=== PATIENT | male | born 1970 | race African-American/Black ===

== ENCOUNTER 2017-07-19 10:21 | Emergency (ER) | payer SELFPAY ==
[~2017-07-19] VITALS: Ht 180.3 cm; Wt 105.0 kg
[~2017-07-19 10:21] MED LIST: CARB200T16 PO; FLUC100T2 PO; RISP4TAB41 PO; SULF1TAB47 PO; VENTAER INH
[2017-07-19 10:23] VITALS: BP 123/75; PULSE 103; RESP 22; TEMP 97.6; O2SAT 95
[2017-07-19] MEDS ORDERED: ZOLO100T PO (10:40)
[2017-07-19] MEDS ORDERED: REME30TA PO (10:40)
[2017-07-19] MEDS ORDERED: TRILAFON (10:40)
[2017-07-19] MEDS ORDERED: ELVITAB PO (10:40)
[2017-07-19] MEDS ORDERED: DEXAMETHASONE SOD PHOS 4 MG/ML VIAL IM ONE (10:45)
[2017-07-19] MEDS ORDERED: BACT800T5 PO (10:56)
[2017-07-19] MEDS ORDERED: ZYRTEC PO (10:56)
[2017-07-19] MEDS ORDERED: PRED20 PO (10:56)
[2017-07-19] MEDS ORDERED: LOTR15T TOPICAL (10:56)
--- NOTE | 2017-07-19 10:56 | PD ---
HPI Chief Complaint: Complaint Time Seen by Provider: 10:37 Travel History International Travel<30 days: No Contact w/Intl Traveler<30days: No Traveled to known affect area: No History of Present Illness HPI 47-year-old male complains of pain and swelling and fluid weeping from the scrotum. Patient states that he has jock itch to the groin area for the past week. Patient applied " SUPER 8" hair product solution to the scrotum last night. Patient states that he started having increased pain swelling and fluid weeping from the scrotum this morning. Patient denies any problem with urinating. Patient denies any fever chills. PFSH Past Medical History Depression: Yes Cancer: No Cardiovascular Problems: Yes Chest Pain: Yes Cerebrovascular Accident: No Diminished Hearing: No Endocrine: No Genitourinary: No Headaches: No Hypertension: Yes Immune Disorder: Yes (HIV) Kidney Stones: No Musculoskeletal: No Neurologic: Yes Psychiatric: Yes (MOOD DISORDER/SCHIZOAFFECTIVE) Reproductive: No Respiratory: No Migraines: No Renal Failure: No Seizures: Yes PNEUMOCCOCAL Vaccine (Year): 2 Past Surgical History Abdominal Surgery: No Cardiac Surgery: No Ear Surgery: No Endocrine Surgery: No Eye Surgery: No Genitourinary Surgery: No Gynecologic Surgery: No Oral Surgery: No Thoracic Surgery: No Social History Alcohol Use: No Tobacco Use: No Substance Use: Yes (THC, COCAINE, BARBS, METH(NOT SINCE 07/17/11)) Allergies-Medications (Allergen,Severity, Reaction): Coded Allergies: ibuprofen (Unverified Allergy, Severe, Shortness of Breath, 07/19/17) penicillin G (Unverified Allergy, Severe, Shortness of Breath, 07/19/17) Reported Meds & Prescriptions Reported Meds & Active Scripts Active Ventolin Hfa (Albuterol Sulfate) 18 Gm Aero 2 Puff INH Q4HPRN Bactrim Ds (Trimethoprim/Sulfamethoxazole) Tab 1 Tab PO BID 14 Days Reported Tegretol (Carbamazepine) 200 Mg Tab 600 Mg PO BID Fluconazole 100 Mg Tab 100 Mg PO DAILY Risperdal (Risperidone) 4 Mg Tab 4 Mg PO HS Review of Systems General / Constitutional: No: Fever Eyes: No: Visual changes HENT: No: Headaches Cardiovascular: No: Chest Pain or Discomfort Respiratory: No: Shortness of Breath Gastrointestinal: No: Abdominal Pain Genitourinary: No: Dysuria Musculoskeletal: No: Pain Skin: No Rash Neurologic: No: Weakness Psychiatric: No: Depression Endocrine: No: Polydipsia Hematologic/Lymphatic: No: Easy Bruising Physical Exam Narrative GENERAL: Well-nourished, well-developed patient. SKIN: Focused skin assessment warm/dry. HEAD: Normocephalic. EYES: No scleral icterus. No injection or drainage. NECK: Supple, trachea midline. No JVD or lymphadenopathy. CARDIOVASCULAR: Regular rate and rhythm without murmurs, gallops, or rubs. RESPIRATORY: Breath sounds equal bilaterally. No accessory muscle use. GASTROINTESTINAL: Abdomen soft, non-tender, nondistended. MUSCULOSKELETAL: No cyanosis, or edema. BACK: Nontender without obvious deformity. No CVA tenderness. exam: Patient has edema swelling with mild tenderness of the scrotum. Mild fissuring of the skin. No serosanguineous discharge. Data Data Last Documented VS Vital Signs Date Time Temp Pulse Resp B/P (MAP) Pulse Ox O2 Delivery O2 Flow Rate FiO2 07/19/17 10:23 97.6 103 22 123/75 (91) 95 Orders Orders Dexamethasone Inj (Decadron Inj) (07/19/17 10:45) MDM Medical Decision Making Medical Screen Exam Complete: Yes Emergency Medical Condition: Yes Differential Diagnosis Differential diagnosis including contact dermatitis, cellulitis. Narrative Course 47-year-old male with pain swelling and weeping from the scrotum after applying a hair solution to the scrotum last night. Decadron 8 mg IM. Diagnosis Primary Impression: Contact dermatitis Qualified Codes: L23.2 - Allergic contact dermatitis due to cosmetics Patient Instructions: General Instructions Additional Instructions: Take medications as directed. Cold compress. Follow-up with personal physician. Return if worse. Med/Other Pt SpecificInfo: Prescription(s) given Scripts [Zyrtec] No Conflict Check 10 MG PO DAILY, #14 Prov: Brodie Coyle MD 07/19/17 Prednisone (Prednisone) 20 Mg Tab 20 MG PO BID, #10 TAB 0 Refills Prov: Brodie Coyle MD 07/19/17 Betamethasone-Clotrimazole Topical (Lotrisone Topical) 1-0.05% Cream 1 APPLIC TOPICAL BID for Fungal infection, #15 GM 0 Refills Prov: Brodie Coyle MD 07/19/17 Sulfamethoxazole-Trimethoprim (Bactrim DS) 800-160 Mg Tab 1 TAB PO BID for Infection, #14 TAB 0 Refills Prov: Brodie Coyle MD 07/19/17 Disposition: 01 DISCHARGE HOME Condition: Stable Brodie Coyle MD Jul 19, 2017 10:56
[2017-07-20] MEDS ORDERED: CETI-1 PO (11:42)
== END 2017-07-19 11:00 | disposition home or self-care (01) ==
LOC: NEPD 10:21
DX: L23.2 Allergic contact dermatitis due to cosmetics (principal); F32.9 Major depressive disorder, single episode, unspecified; I10 Essential (primary) hypertension; Z21 Asymptomatic human immunodeficiency virus [HIV] infection status; F39 Unspecified mood [affective] disorder; F25.9 Schizoaffective disorder, unspecified; R56.9 Unspecified convulsions; Z79.899 Other long term (current) drug therapy; Z88.6 Allergy status to analgesic agent
CPT/HCPCS: 96372; 99284; J1100